=== PATIENT | female | born 1950 | race Caucasian/White ===

== ENCOUNTER 2018-01-28 13:14 | Emergency (ER) | payer OTHER ==
[~2018-01-28] VITALS: Ht 152.4 cm; Wt 77.1 kg
[~2018-01-28 13:14] MED LIST: CARDIZEM CD180 MG; SYNTHROID100 MCG; [UNRECOGNIZED DRUG - OTHER]
== END 2018-01-28 16:03 | disposition home or self-care (01) ==
LOC: ER 13:14
DX: M94.0 Chondrocostal junction syndrome [Tietze] (principal)

== ENCOUNTER → 2018-03-24 | Emergency (ER) | payer OTHER ==
[~2018-03-24] VITALS: Ht 152.4 cm; Wt 77.1 kg
[~2018-03-24] MED LIST changes: +CARDIZEM CD240 MG; +FOLIC ACID1 MG; +PAXIL20 MG; +SIMVASTATIN20 MG; +SYNTHROID137 MCG
== END | disposition home or self-care (01) ==
LOC: ER 14:05
DX: S00.03XA Contusion of scalp, initial encounter (principal); S19.89XA Other specified injuries of other specified part of neck, initial encounter; W18.09XA Striking against other object with subsequent fall, initial encounter; Y93.89 Activity, other specified; Y92.89 Other specified places as the place of occurrence of the external cause; Y99.8 Other external cause status

== ENCOUNTER → 2018-10-06 | Outpatient (CLI) | payer OTHER | END | disposition home or self-care (01) | LOC: NUCLEAR 09:00 | DX: I11.9 Hypertensive heart disease without heart failure (principal); I25.10 Atherosclerotic heart disease of native coronary artery without angina pectoris ==

== ENCOUNTER 2020-10-13 13:50 | Emergency (ER) | payer OTHER ==
[~2020-10-13] VITALS: Ht 152.4 cm; Wt 68.9 kg
== END 2020-10-13 18:53 | disposition home or self-care (01) ==
LOC: ER 13:50
DX: S40.011A Contusion of right shoulder, initial encounter (principal); S80.01XA Contusion of right knee, initial encounter; S00.33XA Contusion of nose, initial encounter; S00.83XA Contusion of other part of head, initial encounter; W06.XXXA Fall from bed, initial encounter; Y93.89 Activity, other specified; Y92.013 Bedroom of single-family (private) house as the place of occurrence of the external cause; Y99.8 Other external cause status

== ENCOUNTER 2020-12-04 09:24 | Day surgery (SDC) | payer OTHER | END 2020-12-04 14:35 | disposition home or self-care (01) | LOC: CIR.AMB 09:24 | PROVIDERS: ATTEND Obstetrics & Gynecology Gynecology | DX: N32.81 Overactive bladder (principal); N39.41 Urge incontinence; R35.0 Frequency of micturition | CPT/HCPCS: 64590; 64581; 95972; C1778; L8679 ==

== ENCOUNTER 2021-07-09 06:15 | Day surgery (SDC) | payer OTHER ==
[~2021-07-09 06:15] MED LIST changes: +FOLIC A PO; +GLUMETZA500 MG PO; +MULTIVITAMINS1 EAC4 PO; +SIMVAST PO
== END 2021-07-09 11:55 | disposition home or self-care (01) ==
LOC: CIR.AMB 06:15
PROVIDERS: ATTEND Obstetrics & Gynecology Gynecology
DX: T85.193A Other mechanical complication of implanted electronic neurostimulator, generator, initial encounter (principal); Z20.822 Contact with and (suspected) exposure to COVID-19

== ENCOUNTER 2022-12-23 10:35 | Outpatient (CLI) | payer OTHER | END 2022-12-23 10:50 | disposition home or self-care (01) | LOC: NUCLEAR 10:35 | PROVIDERS: ATTEND Internal Medicine | DX: I25.10 Atherosclerotic heart disease of native coronary artery without angina pectoris (principal); I11.9 Hypertensive heart disease without heart failure ==

== ENCOUNTER 2025-05-21 16:04 | Emergency (ER) | payer OTHER ==
[~2025-05-21] VITALS: Ht 152.4 cm; Wt 72.6 kg
[2025-05-21] MEDS ORDERED: 0.9 % SODIUM CHLORIDE 500 ML IV STA (17:19)
[2025-05-21 17:48] LABS: BASO % 0.6 % (0.1-1.2); EOS # 0.11 (0.04-0.54); EOS % 1.3 % (0.7-7.0); LYMPH # 1.18 (1.18-3.74); LYMPH % 13.5 % (19.3-53.1); MEAN PLATELET VOLUME 11.00 fl (9.4-12.4); MONO # 0.77 (0.24-0.82); MONO % 8.8 % (4.7-12.5); NEUT # 6.58 (1.56-6.13); NEUT % 75.5 % (34.0-71.1); RED CELL DISTRIBUTION WIDTH 14.0 % (11.6-14.4)
[2025-05-21 18:31] LABS: ALT/SGPT 27.0 U/L (12-78); AST/SGOT 25.0 U/L (15-37); BILIRUBIN TOTAL 0.49 mg/dL (0.3-1.2); BUN CREA RATIO 17.0 (7.0-25.0); CREATININE SERUM 0.75 mg/dL (0.55-1.02); GFR 75.13; GLOBULINA 3.8 G/DL (2.4-3.5); GLUCOSE FASTING 103.0 mg/dL (65-100); OSMOLALITY SERUM 285.0 MOSM/KG (275-295)
[2025-05-21] MEDS ORDERED: ACETAMINOPHEN 500 MG GEL..CAP PO STA (19:15)
[2025-05-21] MEDS ORDERED: ACETAMINOPHEN 500 MG GEL..CAP PO ONE (21:18)
[2025-05-21] MEDS ORDERED: PURELAX17 GM PO (22:14)
[2025-05-21] MEDS ORDERED: MAGNESIUM HYDROXIDE 400 MG/5 ML ML PO STA (22:15)
[2025-05-21] MEDS ORDERED: LACTULOSE 20 G/30 ML BLIST.PACK PO STA (22:15)
[2025-05-21] MEDS ORDERED: MINERAL OIL 30 ML BLIST.PACK PO STA (22:15)
[2025-05-21] MEDS ORDERED: ORPHENADRINE CITRATE 30 MG/ML AMPUL IM STA (22:20)
[2025-05-21] MEDS ORDERED: ORPHENADRINE CITRATE 30 MG/ML AMPUL ONE (22:35)
[2025-05-21] MEDS ORDERED: LACTULOSE 20 G/30 ML BLIST.PACK ONE ×2 (22:35→22:39)
[2025-05-21] MEDS ORDERED: MINERAL OIL 30 ML BLIST.PACK ONE ×2 (22:35→22:39)
[2025-05-21] MEDS ORDERED: MAGNESIUM HYDROXIDE 30 ML BLIST.PACK PO ONE ×2 (22:35→22:39)
== END 2025-05-21 22:56 | disposition home or self-care (01) ==
LOC: ER 16:05
PROVIDERS: General Practice
DX: K59.00 Constipation, unspecified (principal); R10.9 Unspecified abdominal pain; K43.9 Ventral hernia without obstruction or gangrene; Z88.0 Allergy status to penicillin; Z88.6 Allergy status to analgesic agent; Z91.041 Radiographic dye allergy status; Z85.850 Personal history of malignant neoplasm of thyroid; E11.9 Type 2 diabetes mellitus without complications; Z79.84 Long term (current) use of oral hypoglycemic drugs
CPT/HCPCS: 74177; 96365; 96366; 96372; 99284; J2360 ×2; J7040; Q9965